=== PATIENT | female | born 1950 | race Two or more races ===

== ENCOUNTER 2024-11-07 21:45 | Emergency (ER) | payer OTHER ==
[~2024-11-07] VITALS: Ht 157.5 cm; Wt 68.0 kg
[2024-11-07] MEDS ORDERED: SERTRALINE20 MG/1 ML (22:11)
[2024-11-07] MEDS ORDERED: ATORVASTATIN CA10 MG (22:11)
[2024-11-07] MEDS ORDERED: KETOROLAC TROMETHAMINE 60 MG VIAL IM ONE ×2 (22:28→22:30)
[2024-11-07] MEDS ORDERED: TRAMADOL HCL 50 MG TABLET PO ONE (22:45)
== END 2024-11-08 04:19 | disposition home or self-care (01) ==
LOC: ER 21:45
DX: M25.561 Pain in right knee (principal); Z91.041 Radiographic dye allergy status
CPT/HCPCS: 29505; 71045; 73560; 96372; 99283; J1885

== ENCOUNTER 2025-02-13 08:00 | Outpatient (CLI) | payer OTHER ==
[~2025-02-13] VITALS: Ht 149.9 cm; Wt 61.2 kg
[~2025-02-13 08:00] MED LIST: ATORVASTATIN CA10 MG; SERTRALINE20 MG/1 ML
[2025-02-13] MEDS ORDERED: ECOTRIN81 MG PO (10:32)
[2025-02-13] MEDS ORDERED: ZESTRIL2.5 MG (10:32)
[2025-02-13] MEDS ORDERED: GRALISE600 MG (10:33)
[2025-02-13 10:40] VITALS: BP 131/76
[2025-02-13 11:05] LABS: URINE APPEARANCE Clear; URINE BILIRRUBIN Negative (NEGATIVE); URINE COLOR Yellow; URINE GLUCOSE Negative (NEGATIVE); URINE KETONE Trace (NEGATIVE); URINE LEUKOCYTE Moderate; URINE NITRATE Negative; URINE PROTEIN Negative (NEGATIVE); URINE UROBILINOGEN 1.0 E.U./dl
[2025-02-13 11:10] LABS: URINE BACTERIA 347.9 uL (0.0-1933); URINE EPITHELIAL CELLS 10.9 uL (0.0-38.8); URINE RBC 25.2 uL (0.0-20.8); URINE WBC 11.6 uL (0.0-23.2)
[2025-02-13 11:16] LABS: URINE BLOOD TRACES; URINE CAST 0.29 uL (0.0-1.40)
[2025-02-13 11:29] LABS: COVID-19 AG NEGATIVE (NEGATIVE)
[2025-02-13 11:33] LABS: INR 1.01
[2025-02-13 11:37] LABS: BASO % 0.5 % (0.1-1.2); EOS # 0.27 (0.04-0.54); EOS % 4.8 % (0.7-7.0); LYMPH # 1.85 (1.18-3.74); LYMPH % 33.0 % (19.3-53.1); MEAN PLATELET VOLUME 10.40 fl (9.4-12.4); MONO # 0.44 (0.24-0.82); MONO % 7.8 % (4.7-12.5); NEUT # 3.00 (1.56-6.13); NEUT % 53.5 % (34.0-71.1); RED CELL DISTRIBUTION WIDTH 13.5 % (11.6-14.4)
[2025-02-13 12:42] LABS: CHOL HDL RATIO 2.2 (0-5.0); HDL 51.0 mg/dl (40-60); LDL 44.0 mg/dl (0-130); VLDL 14.0 (0-39)
[2025-02-13 12:43] LABS: ALT/SGPT 95.0 U/L (12-78); AST/SGOT 69.0 U/L (15-37); BILIRUBIN TOTAL 0.43 mg/dL (0.3-1.2); BUN CREA RATIO 27.0 (7.0-25.0); CREATININE SERUM 0.85 mg/dL (0.55-1.02); GFR 65.56; GLOBULINA 3.6 G/DL (2.4-3.5); GLUCOSE FASTING 89.0 mg/dL (65-100); OSMOLALITY SERUM 284.0 MOSM/KG (275-295)
[2025-02-13 13:09] LABS: RH POSITIVE
== END 2025-02-13 08:05 | disposition home or self-care (01) ==
LOC: RAD 08:00 → EDSTATUS 02-19 08:00 → EDBD 02-19 08:00 → SURH 02-19 08:00
PROVIDERS: ATTEND Orthopaedic Surgery
DX: M17.11 Unilateral primary osteoarthritis, right knee (principal); D64.9 Anemia, unspecified; R10.9 Unspecified abdominal pain; Z79.01 Long term (current) use of anticoagulants; N39.0 Urinary tract infection, site not specified; E78.5 Hyperlipidemia, unspecified; D68.9 Coagulation defect, unspecified; Z03.818 Encounter for observation for suspected exposure to other biological agents ruled out; Z20.828 Contact with and (suspected) exposure to other viral communicable diseases; R05.2 Subacute cough